=== PATIENT | male | born 1970 | race Caucasian/White ===

== ENCOUNTER 2017-10-05 10:17 | Emergency (ER) | payer MEDICAID ==
[2017-10-05] MEDS: LIDOCAINE 1% (MDV) 20 ML INJ SC (11:22)
[2017-10-05] MEDS: CEFTRIAXONE 1 GM INJ IM (11:22)
[2017-10-05] MEDS: DIPHTH/TET/ACEL PERTUSS (ADULT) 0.5 ML VIAL IM* (11:22)
== END 2017-10-05 12:10 | disposition home or self-care (01) ==
LOC: FTE 10:17
DX: L03.116 Cellulitis of left lower limb (principal); Z23 Encounter for immunization
CPT/HCPCS: 73630; 73630-LT; 90471; 90715; 96372; 99284-25